=== PATIENT | male | born 1975 | race Caucasian/White ===

== ENCOUNTER 2021-12-01 08:39 | Day surgery (SDC) | payer BC ==
[~2021-12-01] VITALS: Ht 170.2 cm; Wt 95.6 kg
[~2021-12-01 08:39] MED LIST: DEPO-TESTO200 MG/1 M IM
--- NOTE | 2021-12-01 13:21 | NUR ---
12/01/21 1321 YOSHI WUIE HAD TO INCREASE O2 POM MASK TO 15L. JAW THRUST FOR A GOOD PORTION OF THE PROCEDURE. ADMITS THAT PT STOPS BREATHING DURING SLEEP AND HE SNORES. THEY ARE AWARE THAT JAW MAY BE TENDER. THEY STATE THAT THEY WILL SPEAK TO PCP ABOUT POSSIBLE SLEEP STUDY. HIS A NURSE AT THE [facility], CARDIAC UNIT.
== END 2021-12-01 10:48 | disposition home or self-care (01) ==
LOC: ORSCSDS 08:39
PROVIDERS: Internal Medicine Gastroenterology
PROC: 0DBK8ZX Excision of Ascending Colon, Via Natural or Artificial Opening Endoscopic, Diagnostic (ICD-10-PCS; principal; 2021-12-01 09:45)
PROC: 0DBL8ZX Excision of Transverse Colon, Via Natural or Artificial Opening Endoscopic, Diagnostic (ICD-10-PCS; principal; 2021-12-01 09:45)
DX: Z12.11 Encounter for screening for malignant neoplasm of colon (principal); Z80.0 Family history of malignant neoplasm of digestive organs; D12.2 Benign neoplasm of ascending colon; D12.3 Benign neoplasm of transverse colon
CPT/HCPCS: 88305; J2704; J7120

== ENCOUNTER 2023-07-17 08:23 | Day surgery (SDC) | payer BC ==
[~2023-07-17] VITALS: Ht 170.2 cm; Wt 84.1 kg
--- NOTE | 2023-07-17 10:48 | NUR ---
07/17/23 Adrian8 RUTHANN WU PT WAS TAKEN BACK LATE TO OR PREVIOUS CASE RAN LONG. GIFT CARD WAS GIVEN.
--- NOTE | 2023-07-17 12:26 | NUR ---
07/17/23 1226 Elvi Hamlin PT IS IN BED AT THIS TIME WITH 5L SUPPLIMENTAL 02 VIA FACE TENT ON. RN IS TREATING PAIN WITH IV PAIN MEDICATION PER DR'S ORDERS. VSS, SATS 96%. ICE APPLIED ON RIGHT UPPER ARM. PT DENIES NAUSEA AT THIS TIME.
[2023-07-17 13:13] VITALS: BP 112/84
== END 2023-07-17 13:40 | disposition home or self-care (01) ==
LOC: ORSCSDS 08:23
PROVIDERS: Orthopaedic Surgery
PROC: 01N50ZZ Release Median Nerve, Open Approach (ICD-10-PCS; principal; 2023-07-17 09:30)
PROC: 01N40ZZ Release Ulnar Nerve, Open Approach (ICD-10-PCS; principal; 2023-07-17 09:30)
DX: G56.03 Carpal tunnel syndrome, bilateral upper limbs (principal); G56.23 Lesion of ulnar nerve, bilateral upper limbs
CPT/HCPCS: A9270; J0171; J0690; J1100; J1885; J2405; J2704; J2795; J3010; J7120